=== PATIENT | female | born 1995 | race Caucasian/White ===

== ENCOUNTER 2017-05-21 15:37 | Emergency (ER) | payer OTHER ==
[2017-05-21 17:28] VITALS: BP 134/86
== END 2017-05-21 17:28 | disposition home or self-care (01) ==
LOC: ED 15:37
DX: O26.891 Other specified pregnancy related conditions, first trimester (principal); M54.6 Pain in thoracic spine; Z3A.00 Weeks of gestation of pregnancy not specified

== ENCOUNTER 2019-04-06 23:01 | Emergency (ER) | payer OTHER ==
[~2019-04-06] VITALS: Ht 160 cm; Wt 84.4 kg
[2019-04-06 23:15] VITALS: Ht 160 cm; Wt 84.4 kg
[2019-04-07 00:54] LABS: BASOPHIL % 0.5 % (0-2); PLATELET COUNT 207 x10^3mcL (130-400); RED CELL DISTRIBUTION WIDTH 13.8 % (11.5-14.5)
[2019-04-07 00:56] LABS: CALCIUM 8.8 mg/dL (8.5-10.1); CARBON DIOXIDE 28.3 mmol/L (21-32); CHLORIDE SERUM 109 mmol/L (98-107); CREATININE SERUM 0.4 mg/dL (0.6-1.0); GFR1 > 60 mL/min; GLUCOSE SERUM 80 mg/dL (74-106); POTASSIUM SERUM 3.6 mmol/L (3.5-5.1); SODIUM SERUM 144 mmol/L (136-145)
[2019-04-07 00:58] VITALS: BP 120/79
[2019-04-07 01:02] LABS: ALBUMIN 3.6 g/dL (3.4-5.0); ALKALINE PHOSPHATASE 107 U/L (46-116); ALT/SGPT 70 U/L (14-59); AST/SGOT 21 U/L (15-37); BILIRUBIN TOTAL 0.32 mg/dL (0.20-1.00); LIPASE 101 IU/L (73-393)
== END 2019-04-07 02:17 | disposition left against medical advice (07) ==
LOC: ED 23:01
DX: R10.11 Right upper quadrant pain (principal)
CPT/HCPCS: 36415